=== PATIENT | male | born 1985 | race Caucasian/White ===

== ENCOUNTER 2017-04-20 11:09 | Emergency (ER) | payer OTHER, BC ==
--- NOTE | ~2017-04-20 | CON ---
PATIENT'S NAME: ASHANTI VELASCO [facility] AGE: 31 Y [address] ROOM: [place] [id number] LOCATION: [facility] ADMIT DATE: 04/20/2017 Consultation DISCHARGE DATE: FAMILY PHYSICIAN: PHYSICIAN, NO ATTENDING PHYSICIAN: Javi Bryant DATE OF CONSULTATION: 04/20/2017 REFERRING PHYSICIAN: Addy Askew MD CHIEF COMPLAINT: Left thumb pain. HISTORY OF PRESENT ILLNESS: Mr. Velasco is a pleasant, 31-year-old [id number] gentleman who presents today for evaluation of his left thumb. He sustained a left thumb laceration while using a hand grinding wheel that kicked back. He denies any previous surgery or trauma to the hand. At the time of the injury, he complained of immediate left hand and thumb pain, 10/10 in nature, sharp alternating with dull. He reports he is otherwise in good health. Alleviating factors include rest, ice, elevation, and immobilization. He presented to the emergency room here where I was consulted for definitive orthopedic care. Other than that, the patient denies any constitutional symptoms such as fever, chills, or night sweats. He also denies any dizziness, chest pain, shortness of breath, blurred vision, nausea, vomiting, or diarrhea. REVIEW OF SYSTEMS: A 10-point review of systems is otherwise as mentioned above in the HPI. The rest of the review of systems is negative other than what is mentioned above. ALLERGIES: NO KNOWN DRUG ALLERGIES. MEDICATIONS: None. Past medical history: None. Past surgical history: None. SOCIAL HISTORY: The patient reports chewing tobacco. He reports occasional alcohol use. No illicit drug use. FAMILY HISTORY: Noncontributory. PHYSICAL EXAMINATION: VITAL SIGNS: Include a weight of 105 kg, temperature 97.6, pulse of 69, PATIENT'S NAME: ASHANTI VELASCO [facility] AGE: 31 Y [address] ROOM: [place], [place] [address] LOCATION: [facility] ADMIT DATE: 04/20/2017 Consultation DISCHARGE DATE: FAMILY PHYSICIAN: PHYSICIAN, NO ATTENDING PHYSICIAN: Javi Bryant respiratory rate of 18, SpO2 of 98% on room air, and blood pressure 118/75. GENERAL: The patient is awake, alert, and oriented x3. He is in no acute distress. He is actively conversing with me at the bedside. HEENT: Normocephalic and atraumatic. Extraocular movements are intact. PERRLA. Moist mucous membranes. Oropharyngeal airway is clear. NECK: Supple. Trachea is in the midline. CARDIOVASCULAR: Regular rate and rhythm. CHEST: Normal symmetric respirations observed bilaterally. ABDOMEN: Soft, nontender, and nondistended. MUSCULOSKELETAL: Left Upper Extremity: Focal examination of the patient's left upper extremity reveals it is grossly neurologically intact distally. There is a 3 cm oblique laceration over the dorsum of the thumb at the level of the proximal phalanx. There is exposed extensor tendon with some fraying noted. However, the patient does have full extension of the finger at the interphalangeal joint and metacarpophalangeal joint without evidence of extensor lag. There is full strength. The patient is actively able to flex the digit as well. He has good capillary refill in the digits. Compartments of the arm, forearm, and hand are soft. There is a palpable radial pulse. IMAGING: Deferred. IMPRESSION: Left dorsal thumb laceration with intact extensor tendon mechanism. PLAN: I had a long discussion today with the patient. I explained that it does not appear to need any further surgical intervention at this time. I am recommending that the emergency room provide local irrigation and debridement and primary closure of the thumb. He will then provisionally immobilize it. I explained that he should remain nonweightbearing on the left hand in order to prevent the sutures from pulling out. Will provide antibiotics and have him follow up in my office in 1 week for clinical evaluation. He may be discharged from the emergency room provided he meets discharge criteria. I have answered all of his questions today at the bedside to his satisfaction. MD CHAU PEREIRA/ori /[id number] d: 04/20/17 1243 t: 04/20/17 1542, CONSULTATION REPORT
--- NOTE | ~2017-04-20 | ER ---
PATIENT'S NAME: ASHANTI [facility] AGE: 31 Y [address] ROOM: [place] [id number] LOCATION: [facility] ADMIT DATE: 04/20/2017 ER/Outpatient Report DISCHARGE DATE: 04/20/2017 FAMILY PHYSICIAN: PHYSICIAN, NO ATTENDING PHYSICIAN: Bertrand Bryant Time of Arrival: 1109 hours. Time of Evaluation: 1122 hours. CHIEF COMPLAINT: Left thumb laceration. HISTORY OF PRESENT ILLNESS: The patient is a 31-year-old male who presents to the emergency department today with a chief complaint of left thumb laceration. He reports he was using an angle cinnamon grinder at approximately 10 o'clock this morning. It kicked back and cut his left thumb. He did have a sharp pain. He did present to [facility], who sent him over here for further evaluation. The patient reports sharp pain, worse with movement, currently very mild in severity. He does have full range of motion of this finger. PAST MEDICAL HISTORY: None. PAST SURGICAL HISTORY: None. SOCIAL HISTORY: The patient does chew tobacco and drinks alcohol occasionally. Denies any illicit drug use. ALLERGIES: NO KNOWN DRUG ALLERGIES. MEDICATIONS: None. PRIMARY CARE DOCTOR: None. REVIEW OF SYSTEMS: All systems were reviewed by myself and negative with the exception of those discussed in the HPI and past medical history. PHYSICAL EXAMINATION: PATIENT'S NAME: ASHANTI [facility] AGE: 31 Y [address] ROOM: [place] [id number] LOCATION: [facility] ADMIT DATE: 04/20/2017 ER/Outpatient Report DISCHARGE DATE: 04/20/2017 FAMILY PHYSICIAN: PHYSICIAN, NO ATTENDING PHYSICIAN: Bertrand Bryant VITAL SIGNS: Weight 105 kg. Blood pressure 117/75, pulse 69, respiratory rate 18, temperature 97.6, and oxygen saturation 98% on room air. GENERAL: The patient is a 31-year-old male who appears his stated age, in no acute distress. HEENT: Normocephalic and atraumatic. Pupils are equal, round, and reactive to light. NECK: Supple. There is no nuchal rigidity. CARDIOVASCULAR: Regular rate and rhythm. No murmurs, rubs, or gallops. LUNGS: Clear to auscultation bilaterally. No wheezes, rales, or rhonchi. ABDOMEN: Soft, nontender, and nondistended. No rebound, rigidity, or guarding. MUSCULOSKELETAL: The patient does have full range of motion of his left thumb including distal tip. He has opposition. SKIN: The patient has a 3.0 cm laceration over the proximal phalanx portion of the dorsal aspect. There is a partial tendon laceration with frayed edges on the lateral aspect of the left thumb. He does still have full range of motion including extension at that left thumb. LABORATORY DATA AND X-RAYS: None. IMPRESSION: 1. Partial left thumb tendon laceration. 2. A 3.0 cm laceration to left thumb with simple repair. 3. Initial visit. EMERGENCY DEPARTMENT COURSE: The patient was brought back to the examination room. He was seen and evaluated by myself. The patient's wound was anesthetized with 1% lidocaine with epinephrine. It was evaluated. He had a partial tendon injury to the left thumb, it appears to be less than 50% of the tendon. He still does have good range of motion. I have discussed the case with Dr. Alanis and Dr. Askew has actually seen and evaluated the patient down here in the emergency department. We will proceed with suture repair. The patient will follow up with Dr. Alanis or Dr. Askew in 10 days for re-evaluation. The patient was placed in extension. They are agreeable without further questions at this time. DISPOSITION: The patient is discharged to home in good condition. BERTRAND BRYANT DO PATIENT'S NAME: ASHANTI [facility] AGE: 31 Y [address] ROOM: [place] [id number] LOCATION: [facility] ADMIT DATE: 04/20/2017 ER/Outpatient Report DISCHARGE DATE: 04/20/2017 FAMILY PHYSICIAN: , STEW ATTENDING PHYSICIAN: Bertrand Bryant/ori /[id number] d: 04/20/17 1354 t: 04/24/172032, OUTPATIENT REPORT
== END 2017-04-20 12:24 | disposition disaster alternative care site (69) ==
LOC: GACC 11:09
PROC: 0HQGXZZ Repair Left Hand Skin, External Approach (ICD-10-PCS; principal; 2017-04-20)
DX: S66.222A Laceration of extensor muscle, fascia and tendon of left thumb at wrist and hand level, initial encounter (principal); S61.012A Laceration without foreign body of left thumb without damage to nail, initial encounter; F17.220 Nicotine dependence, chewing tobacco, uncomplicated; Z23 Encounter for immunization; W31.89XA Contact with other specified machinery, initial encounter